=== PATIENT | male | born 2000 | race Caucasian/White ===

== ENCOUNTER → 2022-06-19 10:18 | Outpatient (CLI) | payer OTHER, SELFPAY ==
--- NOTE | ~2022-06-19 | CT_ITS ---
EXAMINATION: CT diagnostic chest wo con DATE: 06/19/2022 10:42 INDICATION: Chest wall mass TECHNIQUE: Computed tomography (CT) of the chest was performed without intravenous contrast. The dose -length product (DLP) was 255.71 mGy-cm. Automated exposure control and iterative reconstruction tech nique were employed. COMPARISON: None FINDINGS: There is mild bilateral gynecomastia. No soft tissue mass of the left chest wall is identif ied. The lungs are free of acute opacities. No pathologically enlarged thoracic lymph nodes are ident ified. The heart size is normal. No pleural effusion or pneumothorax. The visualized osseous structur es are unremarkable. IMPRESSION: 1. No soft tissue mass of the left chest wall identified. Reviewed, dictated and finalized at location B.
== END ==
PROVIDERS: PCP Family Medicine; Visit Provider Family Medicine
DX: R22.2 Localized swelling, mass and lump, trunk (principal)
CPT/HCPCS: 71250

== ENCOUNTER 2024-06-19 12:48 | Outpatient (CLI) | payer BC, SELFPAY ==
--- NOTE | ~2024-06-19 | XR_ITS ---
XR foot LT min 3V 06/19/2024 13:03 INDICATION: Left foot pain PROCEDURE: 4 views left foot COMPARISON: No prior studies for comparison. FINDINGS: Fracture, dislocation or subluxation is not identified. Lisfranc joint intact. The soft tis sues appear within normal limits. No foreign bodies are identified. IMPRESSION: 1: NO ACUTE BONE OR JOINT ABNORMALITY IDENTIFIED. Reviewed, dictated and finalized at location B.
== END 2024-06-19 12:49 ==
PROVIDERS: PCP Family Medicine; Visit Provider Family Medicine
DX: M79.672 Pain in left foot (principal)
CPT/HCPCS: 73630

== ENCOUNTER 2024-10-28 08:12 | Outpatient (CLI) | payer BC, SELFPAY ==
--- NOTE | ~2024-10-28 | XR_ITS ---
EXAMINATION: XR hip BI wo pelvis DATE: 10/28/2024 08:34 INDICATION: Right hip pain. TECHNIQUE: 2 views of right hip and 2 views of left hip were obtained. COMPARISON: None. FINDINGS: Alignment is normal. No fracture. Joint spaces are normal. IMPRESSION: 1. Normal hips. Reviewed, dictated and finalized at location A. DIGGER IMPRESSION: 1. Normal hips.
== END 2024-10-28 08:13 | disposition home or self-care (01) ==
PROVIDERS: PCP Family Medicine; Visit Provider Family Medicine
DX: M25.551 Pain in right hip (principal)
CPT/HCPCS: 73521

== ENCOUNTER 2024-11-20 10:43 | Outpatient (CLI) | payer BC, SELFPAY ==
--- NOTE | ~2024-11-20 | MR_ITS ---
EXAMINATION: MR hip RT w con DATE: 11/20/2024 12:01 INDICATION: Right hip pain TECHNIQUE: Magnetic resonance (MR) arthrogram of the right hip was performed following intra-articula r gadolinium contrast injection and without intravenous contrast. Details of the hip joint injection have been dictated separately. Sequences included small field of view of the right hip with axial and sagittal T1-weighted FS SE and T2-weighted FS FSE and coronal T1-weighted SE and T2-weighted FS FSE . Additional T1-weighted FGRE images in a radial pattern oriented orthogonal to the acetabular rim we re obtained for evaluation of the labrum. COMPARISON: Right hip radiographs dated 10/28/2024 FINDINGS: Bones/labrum/cartilage: Alignment is normal. On the larger [id number] images there is a small region of increased marrow fluid signal at the posterior lateral superior aspect of the left femoral head surrounding subarticul ar linear low signal intensity which could represent a nondisplaced fracture or margin of the region of osteonecrosis. Marrow signal is otherwise normal. No fracture or avascular necrosis at the right h ip. Articular cartilage is normal. There is a small cleft with smooth margins at the chondrolabral in terface at the superolateral right acetabular labrum. A similar cleft is suggested but not diagnostic ally evaluated at the same location of the contralateral left hip on the larger [id number] images. Fluid: Injected contrast enhances the fluid about the right hip. Physiologic amount fluid in the contralater al left hip. No bursitis or other abnormal fluid collections. Soft tissues: Normal and symmetric muscle bulk and signal in the pelvis and visualized proximal thighs. The bilater al iliopsoas, gluteal and proximal hamstring tendons are normal. Limited evaluation of visceral organ s of the pelvis is unremarkable. No pathologically enlarged pelvic/inguinal lymphadenopathy. IMPRESSION: 1. Small cleft with smooth margins at the chondral labral interface at the superior right acetabulum suggestion of a similar cleft at the contralateral left acetabulum on the large [id number] images. Differential would include labral tears or more likely normal sublabral sulci. 2. Nonspecific region of edema-like marrow signal change surrounding a linear low signal at the poste rosuperolateral left femoral head with differential including nondisplaced fracture or osteonecrosis. Correlate clinically for left hip pain. Reviewed, dictated and finalized at location B. [facility] [employer] IMPRESSION: 1. Small cleft with smooth margins at the chondral labral interface at the supe rior right acetabulum suggestion of a similar cleft at the contralateral left a cetabulum on the large [id number] images. Differential would include labral tears or more likely normal sublabral sulci. 2. Nonspecific region of edema-like marrow signal change surrounding a linear l ow signal at the posterosuperolateral left femoral head with differential inclu ding nondisplaced fracture or osteonecrosis. Correlate clinically for left hip pain.
--- NOTE | ~2024-11-20 | XR_ITS ---
EXAMINATION: XR fl inj hip RT for MR/CT DATE: 11/20/2024 11:29 INDICATION: Right hip pain TECHNIQUE: A time-out was performed to verify the patient's name, date of , and procedure to b e performed. The procedure including the risks, benefits, and alternatives was discussed with the pat ient. Risks discussed included bleeding and infection. The patient understood the risks and agreed to proceed. The skin overlying the right hip joint was prepped and draped in usual sterile fashion. A nesthetic was administered with 1% lidocaine subcutaneously. A 22 G needle was advanced under fluoro scopic guidance into the joint. Injection of 1 mL of Omnipaque 240 confirmed intra-articular positio n of the needle. Subsequently, injectate consisting of 12 mL of 2:1:1 mixture of sterile saline:Omni paque 240:1% lidocaine mixed 200:1 with 529 mg/mL Multihance gadolinium contrast was injected with i ntra-articular administration confirmed with intermittent fluoroscopy. The needle was removed and the entry site was cleaned and dressed. There were no immediate complications. Fluoroscopy exposure mae e was 0.1 minutes. The total number of images was 6. Total DAP was 0.65 Gycm^2 FINDINGS: Real-time fluoroscopy demonstrates the needle in the right hip joint. IMPRESSION: 1. Successful right hip joint injection of a dilute gadolinium contrast mixture for subsequent MRI ar throgram which will be dictated separately. Reviewed, dictated and finalized at location B. [employer] IMPRESSION: 1. Successful right hip joint injection of a dilute gadolinium contrast mixture for subsequent MRI arthrogram which will be dictated separately.
== END 2024-11-20 10:44 | disposition home or self-care (01) ==
LOC: MICIMG 10:44
PROVIDERS: PCP Family Medicine; Visit Provider Family Medicine
DX: R93.89 Abnormal findings on diagnostic imaging of other specified body structures (principal); M25.551 Pain in right hip
CPT/HCPCS: 20610; 73722; 77002; A9577; Q9967

== ENCOUNTER 2025-03-17 07:01 | Outpatient (CLI) | payer BC, SELFPAY ==
--- NOTE | ~2025-03-17 | MR_ITS ---
MRI of the lumbar spine Clinical History: Back pain Technique: Axial T2-weighted images, and sagittal T1-weighted, T2-weighted, and T2 fat-sat images wer e acquired. Findings: There is no acute fracture or subluxation of the lumbar spine. Probable chronic Schmorl's n odes at L1 and L2 with minimal anterior wedging of L1. No suspicious bone marrow signal abnormality s een. At L1-L2, there is advanced degenerative disc narrowing. No disc bulge or herniation. No spinal canal stenosis or neural foraminal narrowing. At L2-L3, there is moderate to advanced degenerative disc 9. No disc bulge or herniation. No spinal c anal stenosis or neural foraminal narrowing. There is mild facet arthropathy. At L3-L4, there is mild to moderate degenerative disc narrowing. There is mild to moderate facet arth ropathy. No central canal stenosis or neural foraminal narrowing. At L4-L5, there is no significant disc bulge or herniation. There is mild facet hypertrophy. No spina l canal stenosis or neural foraminal narrowing. At L5-S1, there is no disc bulge or herniation. No spinal canal stenosis or neural foraminal narrowin g. Paravertebral soft tissues are unremarkable.. 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 No spinal canal stenosis or neural foraminal narrowing. Reviewed, dictated and finalized at [facility]. 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 No spinal canal stenosis or neural foraminal narrowing.
== END 2025-03-17 07:02 | disposition home or self-care (01) ==
LOC: MICIMG 07:03
PROVIDERS: PCP Family Medicine
DX: M47.896 Other spondylosis, lumbar region (principal)
CPT/HCPCS: 72148